=== PATIENT | male | born 1970 | race Caucasian/White ===

== ENCOUNTER → 2023-03-14 | Outpatient (CLI) | payer BC ==
--- NOTE | 2023-03-17 08:52 | CTL ---
EXAMINATION TYPE: CT Low Dose Lung DATE OF EXAM ORDERED: 03/14/2023 HISTORY: 52-year-old male Z87.891, 49.5 pack year history. Lung cancer screening CT DLP: 97.[address] CTDI: 2.6 mGy Automated exposure control for dose reduction was used. SCREENING VISIT: Baseline COMPARISON: None TECHNIQUE: Low dose computed tomography scan was performed through the chest with coronal and sagitta l reconstructions. CT DIAGNOSTIC QUALITY: Satisfactory FINDINGS: The heart is normal size without pericardial effusion. There is mild aneurysm of the ascending aorta 4.1 cm. Conventional arch vessel branching anatomy. No thoracic lymphadenopathy by CT size criteria. Trace bilateral gynecomastia. There is mild diffuse bronchial wall thickening and mild emphysematous change. No consolidation or pl eural effusion. A couple tiny punctate calcified granulomas are present, anterior left midlung and central right midl deni. Also, anterior left lower lobe. No suspicious pulmonary nodules are seen. Visualized upper abdomen shows diverticular change of the splenic flexure of the colon. Bones: Mild degenerative disc disease lower thoracic spine. IMPRESSION: 1. LungRADS 2, benign. A few punctate benign calcified granulomas. 2. COPD with mild emphysema. Recommend smoking cessation. 3. Mild aneurysm ascending aorta at 4.[address] LUNG RAD AND CT CHEST RECOMMENDATION: Lung-Rad 2 Benign Appearance or Behavior: Continue annual sc reening with LDCT in 12 months. S Modifier (other clinically significant findings): Follow up as clinically indicated for the mild as cending aortic aneurysm.
== END | disposition home or self-care (01) ==
LOC: RADCTMAIN 16:31
PROVIDERS: ATTEND Family Medicine
DX: Z12.2 Encounter for screening for malignant neoplasm of respiratory organs (principal); J43.9 Emphysema, unspecified; J84.10 Pulmonary fibrosis, unspecified; I71.21 Aneurysm of the ascending aorta, without rupture; F17.210 Nicotine dependence, cigarettes, uncomplicated
CPT/HCPCS: 71271